=== PATIENT | female | born 1955 | race Caucasian/White ===

== ENCOUNTER 2017-12-09 14:54 | Inpatient (IN) | payer OTHER ==
[~2017-12-09] VITALS: Ht 162.6 cm; Wt 61.9 kg
[2017-12-09] MEDS ORDERED: GABA300C10 PO (15:15)
[2017-12-09] MEDS ORDERED: OXYC1TAB7 PO (15:15)
[2017-12-09] MEDS ORDERED: DIAZEPAM 5 MG TABLET ONE (15:52)
[2017-12-09] MEDS ORDERED: HYDROmorphone 2 MG/ML, 1ML ONE (15:52)
[2017-12-09] MEDS ORDERED: DIAZEPAM 5 MG TABLET PO ONE (16:00)
[2017-12-09] MEDS ORDERED: HYDROmorphone 1 MG/ML, 1ML IM ONE (16:00)
[2017-12-09] MEDS ORDERED: SODIUM CHLORIDE FLUSH 10ML SYR IVF ONE (17:30)
[2017-12-09 18:24] VITALS: BP 129/72
[2017-12-09 18:27] VITALS: BP 129/72
[2017-12-09] MEDS ORDERED: ONDANSETRON 2MG/ML, 2ML IVPush PRN (20:30)
[2017-12-09] MEDS ORDERED: BISACODYL 10 MG SUPP PR PRN (20:30)
[2017-12-09] MEDS ORDERED: hydrALAzine 20 MG/ML, 1ML IVPush PRN (20:30)
[2017-12-09] MEDS ORDERED: PROMETHAZINE 25 MG/ML, 1ML IM PRN (20:30)
[2017-12-09] MEDS ORDERED: morphine SULFATE 10 MG/ML, 1ML IVPush PRN (20:30)
[2017-12-09] MEDS ORDERED: ONDANSETRON ODT 4 MG PO PRN (20:30)
[2017-12-09] MEDS ORDERED: POLYETHYLENE GLYCOL 17 GM PACKET PO PRN (20:30)
[2017-12-09] MEDS ORDERED: ACETAMINOPHEN 325 MG TABLET PO PRN (20:30)
[2017-12-09] MEDS: METHOCARBAMOL 750 MG TABLET PO PRN (20:55)
[2017-12-09] MEDS: GABAPENTIN 300 MG CAPSULE PO SCH (20:56)
[2017-12-09 20:58] LABS: MICROSCOPIC NOT IND
[2017-12-09 21:01] LABS: CULTURE INDICATED? NO
[2017-12-09 21:40] LABS: HEMOGLOBIN A1C 5.9 % (4.2-6.3)
[2017-12-10 03:22] VITALS: BP 164/92
[2017-12-10 05:45] LABS: CHLORIDE 105 mmol/L (98-107)
[2017-12-10 06:18] LABS: BASOPHILS # (AUTO) 0.07 x10^3/uL (0-0.1); BASOPHILS % (AUTO) 1 % (0-1); EOSINOPHILS # (AUTO) 0.01 x10^3/uL (0-0.4); EOSINOPHILS % (AUTO) 0 % (1-7); LYMPHOCYTES # (AUTO) 0.92 x10^3/uL (1-3.4); LYMPHOCYTES % (AUTO) 17 % (22-44); MD SCAN; MEAN CORPUSCULAR HEMOGLOBIN 32.2 pg (27.0-34.8); MEAN CORPUSCULAR HGB CONC 34.2 g/dL (32.4-35.8); MEAN CORPUSCULAR VOLUME 94.1 fL (80-100); MEAN PLATELET VOLUME 10.8 fL (7.4-10.4); MONOCYTES # (AUTO) 0.19 x10^3/uL (0.2-0.8); MONOCYTES % (AUTO) 3 % (2-9); NEUTROPHILS # (AUTO) 4.34 x10^3/uL (1.8-6.8); NEUTROPHILS % (AUTO) 79 % (42-75); PLATELET COUNT 173 x10^3/uL (130-400); RED BLOOD COUNT 4.51 x10^6/uL (3.82-5.3); RED CELL DISTRIBUTION WIDTH 13.2 % (9.6-15.2)
[2017-12-10 06:48] LABS: ALANINE AMINOTRANSFERASE 22 U/L (12-78); ALBUMIN 3.9 g/dL (3.4-5.0); ALKALINE PHOSPHATASE 63 U/L (45-117); ANION GAP 11 mmol/L (5-15); BILIRUBIN,TOTAL 0.4 mg/dL (0.2-1.0); CALCIUM 9.5 mg/dL (8.5-10.1); CHOL/HDL RATIO 4.6; CHOLESTEROL, TOTAL 223 mg/dL (140-239); CREATININE 0.36 mg/dL (0.55-1.02); HDL CHOL % 22 % (28-40); HDL CHOLESTEROL (DIRECT) 48 mg/dL (40-60); LDL CHOLESTEROL,CALCULATED 160 mg/dL (54-169); LDL/HDL RATIO 3.3 (0.5-3.0); THYROID STIMULATING HORMONE 0.554 mIU/L (0.358-3.740); TOTAL PROTEIN 7.2 g/dL (6.4-8.2); TRIGLYCERIDES 74 mg/dL (50-200); VLDL CHOLESTEROL 15 mg/dL (0-25)
[2017-12-10 07:58] VITALS: BP 125/71
[2017-12-10] MEDS: GABAPENTIN 300 MG CAPSULE PO SCH ×3 (08:24→20:29)
[2017-12-10] MEDS: SENNA/DOCUSATE TABLET PO SCH (08:24)
[2017-12-10 14:33] VITALS: BP 133/72
[2017-12-10] MEDS ORDERED: ARTIFICIAL TEARS 15 DROP/ML BOTTLE EACHEYE PRN (17:00)
[2017-12-10 19:44] VITALS: BP 108/68
[2017-12-11 01:04] VITALS: BP 129/75
[2017-12-11] MEDS ORDERED: HEPARIN 1,000 UNITS/ML, 30ML ONE (06:52)
[2017-12-11] MEDS ORDERED: KETAMINE 10 MG/ML, 20ML ONE (07:09)
[2017-12-11] MEDS ORDERED: ACETAMINOPHEN 500 MG TABLET PO ONE ×2 (07:30)
[2017-12-11] MEDS ORDERED: OxyconTIN ER 10 MG TAB.ER PO ONE ×2 (07:30)
[2017-12-11] MEDS ORDERED: FAMOTIDINE 20 MG TABLET PO ONE ×2 (07:30)
[2017-12-11] MEDS ORDERED: METOCLOPRAMIDE 10MG TABLET PO ONE ×2 (07:30)
[2017-12-11] MEDS ORDERED: DIAZEPAM 5 MG TABLET PO ONE ×2 (07:30)
[2017-12-11] MEDS ORDERED: GABAPENTIN 300 MG CAPSULE PO ONE ×2 (07:30)
[2017-12-11] MEDS ORDERED: ROCURONIUM 10 MG/ML,10ML ONE (07:46)
[2017-12-11] MEDS ORDERED: CEFAZOLIN 1,000 MG ONE ×2 (07:46)
[2017-12-11] MEDS ORDERED: PROPOFOL 10 MG/ML, 20ML ONE (07:46)
[2017-12-11] MEDS ORDERED: DEXAMETHASONE 4 MG/ML, 1ML ONE (07:46)
[2017-12-11] MEDS ORDERED: SUCCINYLCHOLINE 20 MG/ML, 10ML ONE (07:46)
[2017-12-11] MEDS ORDERED: KETOROLAC 30 MG/1 ML ONE (07:46)
[2017-12-11] MEDS ORDERED: PROPOFOL 10 MG/ML, 50ML ONE (07:46)
[2017-12-11] MEDS ORDERED: BUPIVACAINE/PF-EPI 0.25% 1:200K IM ONE (09:11)
[2017-12-11] MEDS ORDERED: BACITRACIN 50,000 UNIT IM ONE (09:14)
[2017-12-11] MEDS ORDERED: THROMBIN 20,000 UNIT VIAL TP ONE (09:14)
[2017-12-11] MEDS ORDERED: BACITRACIN OINT 500U/GM, 15 GM TP ONE (09:15)
[2017-12-11] MEDS ORDERED: PROMETHAZINE 25 MG/ML, 1ML IV PRN (10:00)
[2017-12-11] MEDS ORDERED: MORPHINE SULFATE 4 MG/ML, 1ML IVPush PRN (10:00)
[2017-12-11] MEDS ORDERED: ONDANSETRON ODT 8 MG PO PRN (10:00)
[2017-12-11] MEDS ORDERED: OXYcodone 5 MG/5 ML ORAL.SOL UDC PO PRN (10:00)
[2017-12-11] MEDS ORDERED: DIAZEPAM 5 MG/ML, 2ML IVPush PRN (10:00)
[2017-12-11] MEDS ORDERED: MEPERIDINE/PF 25MG/0.5ML IVPush PRN (10:00)
[2017-12-11] MEDS ORDERED: ALBUTEROL SULFATE 2.5 MG/3 ML NPPB PRN (10:00)
[2017-12-11] MEDS: FENTANYL PF 100 MCG/2ML IV PRN ×4 (12:15→12:55)
[2017-12-11] MEDS: METHOCARBAMOL 750 MG TABLET PO PRN (12:20)
[2017-12-11] MEDS ORDERED: HYDROmorphone PCA 30 MG/30 ML IV PRN (13:00)
[2017-12-11 13:29] VITALS: BP 120/68
[2017-12-11] MEDS: GABAPENTIN 300 MG CAPSULE PO SCH ×3 (13:52→20:41)
[2017-12-11] MEDS: SENNA/DOCUSATE TABLET PO SCH (13:52)
[2017-12-11] MEDS ORDERED: DIPHENHYDRAMINE 50 MG/ML, 1ML IVPush PRN (16:00)
[2017-12-11] MEDS ORDERED: PROMETHAZINE 25 MG/ML, 1ML IM PRN (16:00)
[2017-12-11] MEDS ORDERED: ONDANSETRON 2MG/ML, 2ML IV PRN (16:00)
[2017-12-11] MEDS ORDERED: METHOCARBAMOL 1,000 MG in DEXTROSE 5% 100 ML IV ONE (16:00)
[2017-12-11] MEDS ORDERED: MAGNESIUM HYDROXIDE 8%, 30ML UDC PO PRN (16:00)
[2017-12-11] MEDS ORDERED: DIPHENHYDRAMINE 50 MG/ML, 1ML IM PRN (16:00)
[2017-12-11] MEDS ORDERED: BISACODYL 10 MG SUPP PR PRN (16:00)
[2017-12-11] MEDS ORDERED: OXYcodone/APAP 5/325MG TABLET PO PRN (16:00)
[2017-12-11] MEDS ORDERED: HYDROmorphone 2 MG/ML, 1ML IM PRN (16:00)
[2017-12-11] MEDS ORDERED: HYDROmorphone 2MG TABLET PO PRN (16:00)
[2017-12-11] MEDS ORDERED: DIPHENHYDRAMINE 50 MG CAPSULE PO PRN (16:00)
[2017-12-11] MEDS: NS + 20MEQ KCL 1,000 ML IV SCH (16:53)
[2017-12-11] MEDS: CEFAZOLIN PMX 2GM/50ML 50 ML IVPB SCH (16:58)
[2017-12-11 19:18] VITALS: BP 126/68
[2017-12-11 23:36] VITALS: BP 116/75
[2017-12-12] MEDS: CEFAZOLIN PMX 2GM/50ML 50 ML IVPB SCH (00:24)
[2017-12-12] MEDS: METHOCARBAMOL 750 MG in DEXTROSE 5% 100 ML IV SCH ×3 (01:12→16:32)
[2017-12-12 03:48] VITALS: BP 120/71
[2017-12-12] MEDS: NS + 20MEQ KCL 1,000 ML IV SCH ×2 (03:51→16:06)
[2017-12-12 08:13] VITALS: BP 118/68
[2017-12-12] MEDS: SENNA/DOCUSATE TABLET PO SCH (08:13)
[2017-12-12] MEDS: GABAPENTIN 300 MG CAPSULE PO SCH ×3 (08:13→21:52)
[2017-12-12] MEDS ORDERED: OXYcodone/APAP 10/325MG TABLET PO PRN (09:00)
[2017-12-12] MEDS ORDERED: HYDROcodone/APAP 10/325 MG TABLET PO PRN (09:00)
[2017-12-12] MEDS: HYDROcodone/APAP 5/325 TABLET PO PRN ×4 (09:35→21:58)
[2017-12-12 14:01] VITALS: BP 113/67
[2017-12-12] MEDS ORDERED: POLYETHYLENE GLYCOL 17 GM PACKET PO PRN (15:00)
[2017-12-12 20:13] VITALS: BP 128/63
[2017-12-13] MEDS: METHOCARBAMOL 750 MG in DEXTROSE 5% 100 ML IV SCH ×3 (00:18→16:00)
[2017-12-13 03:29] VITALS: BP 118/63
[2017-12-13] MEDS: NS + 20MEQ KCL 1,000 ML IV SCH ×2 (04:09→16:12)
[2017-12-13] MEDS: HYDROcodone/APAP 5/325 TABLET PO PRN ×2 (04:42→08:25)
[2017-12-13] MEDS ORDERED: DIAZEPAM 5 MG TABLET PO PRN (08:00)
[2017-12-13 08:15] VITALS: BP 127/75
[2017-12-13] MEDS: SENNA/DOCUSATE TABLET PO SCH (08:21)
[2017-12-13] MEDS: GABAPENTIN 300 MG CAPSULE PO SCH ×2 (08:21→16:09)
[2017-12-13] MEDS: HYDROcodone/APAP 10/325 MG TABLET PO PRN ×2 (12:25→16:09)
[2017-12-13 14:41] VITALS: BP 139/80
[2017-12-13] MEDS ORDERED: HYDR-3307 PO (16:42)
[2017-12-13] MEDS ORDERED: METH750T87 PO (16:42)
[2017-12-14] MEDS ORDERED: METHOCARBAMOL 750 MG TABLET PO SCH
[2017-12-14] MEDS ORDERED: MAGNESIUM HYDROXIDE 8%, 30ML UDC PO SCH (09:00)
== END 2017-12-13 17:00 | disposition home or self-care (01) | DRG 453 ==
LOC: ED 17:47 → EDIP 17:50 → 3NE 18:06 → 4NOR 12-11 10:54 → DCLOUNGE 12-13 16:39
PROVIDERS: ADMIT Emergency Medicine; ATTEND Emergency Medicine
PROC: 0SG00K1 Fusion of Lumbar Vertebral Joint with Nonautologous Tissue Substitute, Posterior Approach, Posterior Column, Open Approach (ICD-10-PCS; 2017-12-11)
PROC: 0SG30A0 Fusion of Lumbosacral Joint with Interbody Fusion Device, Anterior Approach, Anterior Column, Open Approach (ICD-10-PCS; 2017-12-11)
PROC: 0SB20ZZ Excision of Lumbar Vertebral Disc, Open Approach (ICD-10-PCS; 2017-12-11)
PROC: 0SB40ZZ Excision of Lumbosacral Disc, Open Approach (ICD-10-PCS; 2017-12-11)
PROC: 0SG30K1 Fusion of Lumbosacral Joint with Nonautologous Tissue Substitute, Posterior Approach, Posterior Column, Open Approach (ICD-10-PCS; 2017-12-11)
PROC: 3E0U0GB Introduction of Recombinant Bone Morphogenetic Protein into Joints, Open Approach (ICD-10-PCS; 2017-12-11)
PROC: 4A11X4G Monitoring of Peripheral Nervous Electrical Activity, Intraoperative, External Approach (ICD-10-PCS; 2017-12-11)
PROC: 0SG00A0 Fusion of Lumbar Vertebral Joint with Interbody Fusion Device, Anterior Approach, Anterior Column, Open Approach (ICD-10-PCS; principal; 2017-12-11 07:30)
DX: M48.07 Spinal stenosis, lumbosacral region (principal); G04.91 Myelitis, unspecified; G95.29 Other cord compression; M54.16 Radiculopathy, lumbar region; M54.30 Sciatica, unspecified side; G89.29 Other chronic pain; M43.16 Spondylolisthesis, lumbar region; M43.17 Spondylolisthesis, lumbosacral region; Z82.49 Family history of ischemic heart disease and other diseases of the circulatory system; Z83.3 Family history of diabetes mellitus
CPT/HCPCS: 36415; 72100; 74018; 80053; 80061; 81003; 83036; 83735; 84443; 85025; 96372; 99285; C1713; J0171; J0690; J1100; J1170; J1644; J1885; J2250; J2270; J2704; J3010; J3480; J3490; C1762; J0330; J2800; J7512